=== PATIENT | female | born 2000 | race African-American/Black ===

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

== ENCOUNTER 2019-09-13 00:02 | Inpatient (IN) | payer MEDICAID ==
[~2019-09-13] VITALS: Ht 162.6 cm; Wt 86.6 kg
[2019-09-13] MEDS ORDERED: POLYETHYLENE GLYCOL 17 GM PACKET PO PRN (00:30)
[2019-09-13] MEDS ORDERED: BISACODYL 10 MG SUPP PR PRN (00:30)
[2019-09-13] MEDS ORDERED: ONDANSETRON ODT 4 MG PO PRN (00:30)
[2019-09-13 02:12] VITALS: BP 127/80
[2019-09-13 02:35] VITALS: BP 127/80
[2019-09-13] MEDS ORDERED: RISP3TAB3 PO (05:52)
[2019-09-13] MEDS ORDERED: TOPI50TA8 PO (05:53)
[2019-09-13 07:00] VITALS: BP 95/62
[2019-09-13 07:35] LABS: ANION GAP 10 mmol/L (5-15); CHLORIDE 109 mmol/L (98-107); CHOLESTEROL, TOTAL 133 mg/dL (140-239); CREATININE 1.06 mg/dL (0.55-1.02)
[2019-09-13 07:39] LABS: BASOPHILS # (AUTO) 0.03 x10^3/uL (0-0.3); BASOPHILS % (AUTO) 0 % (0-1); EOSINOPHILS % (AUTO) 1 % (1-7); LYMPHOCYTES # (AUTO) 2.39 x10^3/uL (1-6.1); LYMPHOCYTES % (AUTO) 33 % (22-44); MD NO; MEAN CORPUSCULAR HGB CONC 33.1 g/dL (32.4-35.8); MEAN CORPUSCULAR VOLUME 84.7 fL (80-100); MONOCYTES # (AUTO) 0.48 x10^3/uL (0-1.4); MONOCYTES % (AUTO) 7 % (2-9); NEUTROPHILS # (AUTO) 4.23 x10^3/uL (1.8-8.0); NEUTROPHILS % (AUTO) 59 % (42-75); PLATELET COUNT 240 x10^3/uL (130-400); RED BLOOD COUNT 4.58 x10^6/uL (3.82-5.3); RED CELL DISTRIBUTION WIDTH 15.4 % (9.6-15.2)
[2019-09-13 08:01] LABS: CHOL/HDL RATIO 4.8; FREE T4 (FREE THYROXINE) 1.11 ng/dL (0.76-1.46); HDL CHOL % 21 % (28-40); HDL CHOLESTEROL (DIRECT) 28 mg/dL (40-60); LDL CHOLESTEROL,CALCULATED 58 mg/dL (54-169); LDL/HDL RATIO 2.1 (0.5-3.0); TRIGLYCERIDES 236 mg/dL (50-200); VLDL CHOLESTEROL 47 mg/dL (0-25)
[2019-09-13] MEDS: FLUOXETINE HCL 20 MG CAPSULE PO SCH (14:36)
[2019-09-13 19:08] VITALS: BP 94/61
[2019-09-13 19:43] LABS: MICROSCOPIC NOT IND
[2019-09-13] MEDS: TOPIRAMATE 25 MG TABLET PO SCH (20:39)
[2019-09-13] MEDS: RISPERIDONE 1 MG TABLET PO SCH (20:39)
[2019-09-14] MEDS: ACETAMINOPHEN 325 MG TABLET PO PRN (00:40)
[2019-09-14 06:34] LABS: CHLORIDE 111 mmol/L (98-107)
[2019-09-14 06:49] LABS: ALANINE AMINOTRANSFERASE 18 U/L (12-78); ALBUMIN 3.6 g/dL (3.4-5.0); ALKALINE PHOSPHATASE 87 U/L (45-117); ANION GAP 8 mmol/L (5-15); BILIRUBIN,TOTAL 0.4 mg/dL (0.2-1.0); CALCIUM 9.2 mg/dL (8.5-10.1); CREATININE 1.19 mg/dL (0.55-1.02); TOTAL PROTEIN 7.6 g/dL (6.4-8.2)
[2019-09-14 07:05] VITALS: BP 106/70
[2019-09-14] MEDS: TOPIRAMATE 25 MG TABLET PO SCH ×2 (09:02→20:51)
[2019-09-14] MEDS: FLUOXETINE HCL 20 MG CAPSULE PO SCH (09:02)
[2019-09-14 19:14] VITALS: BP 110/70
[2019-09-14] MEDS: RISPERIDONE 1 MG TABLET PO SCH (20:51)
[2019-09-15 07:59] VITALS: BP 96/58
[2019-09-15] MEDS: FLUOXETINE HCL 20 MG CAPSULE PO SCH (08:56)
[2019-09-15] MEDS: TOPIRAMATE 25 MG TABLET PO SCH ×2 (08:56→20:07)
[2019-09-15] MEDS: ACETAMINOPHEN 325 MG TABLET PO PRN ×2 (11:42→19:38)
[2019-09-15 14:32] LABS: ANION GAP 11 mmol/L (5-15); CALCIUM 9.6 mg/dL (8.5-10.1); CHLORIDE 109 mmol/L (98-107); CREATININE 1.07 mg/dL (0.55-1.02)
[2019-09-15 19:35] VITALS: BP 100/51
[2019-09-15] MEDS: RISPERIDONE 1 MG TABLET PO SCH (20:08)
[2019-09-15 20:24] VITALS: BP 101/64
[2019-09-16 07:38] VITALS: BP 123/78
[2019-09-16] MEDS: TOPIRAMATE 25 MG TABLET PO SCH ×2 (08:10→20:53)
[2019-09-16] MEDS: DOCUSATE 100 MG CAPSULE PO PRN (08:10)
[2019-09-16] MEDS: FLUOXETINE HCL 20 MG CAPSULE PO SCH (08:10)
[2019-09-16] MEDS: ACETAMINOPHEN 325 MG TABLET PO PRN (08:10)
[2019-09-16] MEDS: IBUPROFEN 200 MG TABLET PO PRN ×2 (12:11→18:03)
[2019-09-16 19:34] VITALS: BP 133/65
[2019-09-16] MEDS: RISPERIDONE 1 MG TABLET PO SCH (20:54)
[2019-09-17 07:42] VITALS: BP 110/80
[2019-09-17] MEDS: TOPIRAMATE 25 MG TABLET PO SCH ×2 (08:21→20:04)
[2019-09-17] MEDS: FLUOXETINE HCL 20 MG CAPSULE PO SCH (08:21)
[2019-09-17] MEDS ORDERED: FLUO20CA23 PO (11:54)
[2019-09-17] MEDS ORDERED: TOPI25TA32 PO (11:54)
[2019-09-17] MEDS ORDERED: RISP3TAB3 PO (11:54)
[2019-09-17] MEDS: ACETAMINOPHEN 325 MG TABLET PO PRN (14:33)
[2019-09-17 19:51] VITALS: BP 132/71
[2019-09-17] MEDS: RISPERIDONE 1 MG TABLET PO SCH (20:04)
[2019-09-17] MEDS: IBUPROFEN 200 MG TABLET PO PRN (20:09)
[2019-09-17] MEDS: DOCUSATE 100 MG CAPSULE PO PRN (20:13)
[2019-09-18 07:00] VITALS: BP 98/61
[2019-09-18] MEDS: TOPIRAMATE 25 MG TABLET PO SCH (09:11)
[2019-09-18] MEDS: FLUOXETINE HCL 20 MG CAPSULE PO SCH (09:12)
== END 2019-09-18 10:10 | disposition home or self-care (01) | DRG 751 ==
LOC: 3E 02:39
PROVIDERS: ADMIT Psychiatry & Neurology Psychosomatic Medicine; ATTEND Psychiatry & Neurology Psychosomatic Medicine
DX: F33.3 Major depressive disorder, recurrent, severe with psychotic symptoms (principal); E66.9 Obesity, unspecified; F41.1 Generalized anxiety disorder; F50.9 Eating disorder, unspecified; F90.9 Attention-deficit hyperactivity disorder, unspecified type; R62.50 Unspecified lack of expected normal physiological development in childhood; R45.851 Suicidal ideations; N17.0 Acute kidney failure with tubular necrosis; Q86.0 Fetal alcohol syndrome (dysmorphic); Z79.899 Other long term (current) drug therapy; Z91.5 Personal history of self-harm; Z68.32 Body mass index [BMI] 32.0-32.9, adult
CPT/HCPCS: 36415; 71045; 80048; 80053; 80061; 81003; 82607; 84439; 84443; 85025; 86592; 93005

== ENCOUNTER 2020-08-27 22:33 | Observation (INO) | payer MEDICAID ==
[~2020-08-27] VITALS: Ht 162.6 cm; Wt 75.0 kg
[~2020-08-27 22:33] MED LIST changes: +FLUO20CA23 PO; +RISP3TAB58 PO; +TOPI25TA32 PO; +TOPI50TA8 PO
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
[2020-08-27 23:24] LABS: AMPHETAMINE SCREEN, URINE Negative (Negative); BARBITURATE SCREEN, URINE Negative (Negative); BENZODIAZEPINE SCREEN, URINE Negative (Negative); CANNABINOID SCREEN, URINE Negative (Negative); COCAINE SCREEN, URINE Negative (Negative); METHADONE SCREEN, URINE Negative (Negative); OPIATE SCREEN, URINE Negative (Negative)
[2020-08-27 23:37] LABS: BASOPHILS % (AUTO) 0 % (0-1); EOSINOPHILS % (AUTO) 0 % (1-7); LYMPHOCYTES % (AUTO) 18 % (22-44); MEAN CORPUSCULAR HEMOGLOBIN 27.5 pg (27.0-34.8); MEAN CORPUSCULAR HGB CONC 32.9 g/dL (32.4-35.8); MEAN PLATELET VOLUME 7.5 fL (7.4-10.4); MONOCYTES % (AUTO) 9 % (2-9); NEUTROPHILS % (AUTO) 73 % (42-75); PLATELET COUNT 281 x10^3/uL (130-400); RED BLOOD COUNT 4.58 x10^6/uL (3.82-5.3); RED CELL DISTRIBUTION WIDTH 16.4 % (9.6-15.2)
[2020-08-27 23:46] LABS: ALANINE AMINOTRANSFERASE 21 U/L (12-78); ALBUMIN 3.8 g/dL (3.4-5.0); ANION GAP 5 mmol/L (5-15); CALCIUM 8.8 mg/dL (8.5-10.1); CHLORIDE 109 mmol/L (98-107)
--- NOTE | 2020-08-27 23:49 | NUR ---
spoke to carmencita dinh over the phone. recomendations were multiple labs, and supportive care. erp updated as well
[2020-08-27 23:56] LABS: SALICYLATE LEVEL < 1.7 mg/dL (2.8-20.0)
[2020-08-27 23:57] LABS: ALKALINE PHOSPHATASE 90 U/L (45-117); BILIRUBIN,TOTAL 0.3 mg/dL (0.2-1.0); CREATININE 0.88 mg/dL (0.55-1.02); TOTAL PROTEIN 7.8 g/dL (6.4-8.2)
[2020-08-28 00:42] LABS: INTERNATIONAL NORMALIZED RATIO 1.1 (0.93-1.1); PROTHROMBIN TIME 11.7 Seconds (9.6-11.5)
--- NOTE | 2020-08-28 01:00 | NUR ---
PT PROVIDED SNACKS AND WATER, OK PE ERP. PT ON ALL MONITORS, VSS. NO OTHER NEEDS AT THIS TIME. IN LINE OF SIGHT OF SITTER
--- NOTE | 2020-08-28 02:02 | NUR ---
Nasal swab collected and walked to lab.
--- NOTE | 2020-08-28 03:08 | NUR ---
PT RESTING IN GURNEY, RESP EVEN/UNLABORED, IN LINE OF SIGHT OF TABATHA
--- NOTE | 2020-08-28 03:55 | NUR ---
FA[facility]ED PACKET TO [facility], [facility]
[2020-08-28 04:11] VITALS: BP 109/60
--- NOTE | 2020-08-28 04:32 | NUR ---
[facility] ACCEPTED PT
[2020-08-28] MEDS ORDERED: OMEP20TA62 PO (14:32)
[2020-08-28] MEDS ORDERED: MULT-482 PO (14:32)
[2020-08-28] MEDS ORDERED: TOPI100T8 PO (14:32)
[2020-08-28] MEDS ORDERED: RISP4TAB66 PO (14:34)
== END 2020-08-28 05:24 ==
LOC: ED 23:03 → EDIP 08-28 01:46
PROVIDERS: ADMIT Student in an Organized Health Care Education/Training Program; ATTEND Student in an Organized Health Care Education/Training Program
DX: T65.892A Toxic effect of other specified substances, intentional self-harm, initial encounter (principal); Z20.822 Contact with and (suspected) exposure to COVID-19; F41.8 Other specified anxiety disorders; I51.7 Cardiomegaly; F91.3 Oppositional defiant disorder; F43.23 Adjustment disorder with mixed anxiety and depressed mood; Z91.5 Personal history of self-harm; Z79.899 Other long term (current) drug therapy
CPT/HCPCS: 36415; 80053; 80299; 80307; 80320; 80329; 84443; 84703; 85025; 85610; 87426; 93005; 99284; G0378; G0480

== ENCOUNTER 2020-08-28 04:26 | Inpatient (IN) | payer MEDICAID ==
[~2020-08-28] VITALS: Ht 162.6 cm; Wt 91.0 kg
[2020-08-28] MEDS ORDERED: ONDANSETRON ODT 4 MG PO PRN (05:00)
[2020-08-28] MEDS ORDERED: POLYETHYLENE GLYCOL 17 GM PACKET PO PRN (05:00)
[2020-08-28] MEDS ORDERED: DOCUSATE 100 MG CAPSULE PO PRN (05:00)
[2020-08-28] MEDS ORDERED: BISACODYL 10 MG SUPP PR PRN (05:00)
[2020-08-28 05:39] VITALS: BP 116/72
[2020-08-28 07:50] VITALS: BP 108/65
[2020-08-28] MEDS: ACETAMINOPHEN 325 MG TABLET PO PRN (10:11)
[2020-08-28] MEDS ORDERED: OMEP20TA62 PO (14:32)
[2020-08-28] MEDS ORDERED: TOPI100T8 PO (14:32)
[2020-08-28] MEDS ORDERED: MULT-482 PO (14:32)
[2020-08-28] MEDS ORDERED: RISP4TAB66 PO (14:34)
[2020-08-28 15:19] LABS: CHOL/HDL RATIO 3.5; LDL/HDL RATIO 1.7 (0.5-3.0)
[2020-08-28 19:35] VITALS: BP 106/63
[2020-08-28] MEDS: RISPERIDONE 1 MG TABLET PO SCH (21:03)
[2020-08-29 07:34] VITALS: BP 109/56
[2020-08-29] MEDS: FLUOXETINE HCL 20 MG CAPSULE PO SCH (08:00)
[2020-08-29] MEDS: RISPERIDONE 1 MG TABLET PO SCH ×2 (08:02→20:15)
[2020-08-29 19:38] VITALS: BP 114/52
[2020-08-30 07:23] VITALS: BP 113/49
[2020-08-30] MEDS: RISPERIDONE 1 MG TABLET PO SCH ×2 (08:21→20:19)
[2020-08-30] MEDS: FLUOXETINE HCL 20 MG CAPSULE PO SCH (09:00)
[2020-08-30 19:09] VITALS: BP 131/82
[2020-08-30] MEDS: GUANFACINE 1 MG TABLET PO SCH (20:19)
[2020-08-30] MEDS: ACETAMINOPHEN 325 MG TABLET PO PRN (20:30)
[2020-08-31 07:25] VITALS: BP 106/72
[2020-08-31] MEDS: FLUOXETINE HCL 20 MG CAPSULE PO SCH (07:55)
[2020-08-31] MEDS: RISPERIDONE 1 MG TABLET PO SCH ×2 (07:55→20:10)
[2020-08-31 18:53] VITALS: BP 114/71
[2020-08-31] MEDS: ACETAMINOPHEN 325 MG TABLET PO PRN (20:09)
[2020-08-31] MEDS: GUANFACINE 1 MG TABLET PO SCH (20:10)
[2020-09-01 07:28] VITALS: BP 97/58
[2020-09-01] MEDS: RISPERIDONE 1 MG TABLET PO SCH ×2 (08:15→20:29)
[2020-09-01] MEDS: FLUOXETINE HCL 20 MG CAPSULE PO SCH (08:16)
[2020-09-01] MEDS: ACETAMINOPHEN 325 MG TABLET PO PRN ×2 (13:28→20:29)
[2020-09-01 19:22] VITALS: BP 123/63
[2020-09-01] MEDS: GUANFACINE 1 MG TABLET PO SCH (20:28)
[2020-09-02 07:18] VITALS: BP 104/69
[2020-09-02] MEDS: FLUOXETINE HCL 20 MG CAPSULE PO SCH (09:31)
[2020-09-02] MEDS: RISPERIDONE 1 MG TABLET PO SCH ×2 (09:32→20:27)
[2020-09-02] MEDS ORDERED: HYDROXYZINE PAMOATE 25MG CAP PO PRN (13:00)
[2020-09-02] MEDS ORDERED: FLUO20CA23 PO (14:17)
[2020-09-02] MEDS ORDERED: GUAN1TAB PO (14:17)
[2020-09-02] MEDS ORDERED: HYDR25CA94 PO (14:17)
[2020-09-02] MEDS ORDERED: RISP1TAB90 PO ×2 (14:17)
[2020-09-02 19:51] VITALS: BP 119/76
[2020-09-02] MEDS: GUANFACINE 1 MG TABLET PO SCH (20:36)
[2020-09-03 06:40] LABS: MICROSCOPIC NOT IND
[2020-09-03 07:14] VITALS: BP 113/72
[2020-09-03] MEDS: FLUOXETINE HCL 20 MG CAPSULE PO SCH (08:02)
[2020-09-03] MEDS: RISPERIDONE 1 MG TABLET PO SCH (08:02)
== END 2020-09-03 16:16 | disposition home or self-care (01) | DRG 885 ==
LOC: 3E 05:01
PROVIDERS: ADMIT Psychiatry & Neurology Psychosomatic Medicine; ATTEND Psychiatry & Neurology Psychosomatic Medicine
DX: F33.3 Major depressive disorder, recurrent, severe with psychotic symptoms (principal); E66.9 Obesity, unspecified; F41.9 Anxiety disorder, unspecified; F90.9 Attention-deficit hyperactivity disorder, unspecified type; K21.9 Gastro-esophageal reflux disease without esophagitis; Z79.899 Other long term (current) drug therapy; Z68.34 Body mass index [BMI] 34.0-34.9, adult
CPT/HCPCS: 36415; 71045; 80053; 80061; 80299; 80307; 80320; 80329; 81003; 84443; 84703; 85025; 85610; 87426; 93005; G0378; G0480

== ENCOUNTER 2020-10-17 22:39 | Emergency (ER) | payer MEDICAID ==
[~2020-10-17] VITALS: Ht 162.6 cm; Wt 105.0 kg
[~2020-10-17 22:39] MED LIST changes: +GUAN1TAB PO; +HYDR25CA94 PO; +MULT-482 PO; +OMEP20TA62 PO; +RISP1TAB90 PO; +RISP4TAB66 PO; +TOPI100T8 PO
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
--- NOTE | 2020-10-17 23:18 | NUR ---
REPORT GIVEN TO CECILIO CENTENO
[2020-10-17] MEDS ORDERED: HALOPERIDOL 5 MG/ML ONE (23:27)
--- NOTE | 2020-10-17 23:28 | NUR ---
PT KICKING BED RAILS AND SHOUTING AT SITTER.
[2020-10-17] MEDS ORDERED: HALOPERIDOL 5 MG/ML IM ONE (23:30)
--- NOTE | 2020-10-17 23:32 | NUR ---
PT MEDICATED PER APR, 5 RIGHTS VERIFIED.
--- NOTE | 2020-10-18 00:04 | NUR ---
LAB AT BEDSIDE AT THIS TIME
[2020-10-18] MEDS ORDERED: LORazepam 2 MG/ML, 1ML ONE (00:16)
--- NOTE | 2020-10-18 00:20 | NUR ---
PT MEDICATED PER MAR
[2020-10-18] MEDS ORDERED: LORazepam 2 MG/ML, 1ML IVPush ONE (00:30)
[2020-10-18 00:35] LABS: BASOPHILS % (AUTO) 0 % (0-1); EOSINOPHILS % (AUTO) 1 % (1-7); LYMPHOCYTES % (AUTO) 23 % (22-44); MEAN CORPUSCULAR HEMOGLOBIN 27.1 pg (27.0-34.8); MEAN CORPUSCULAR HGB CONC 32.6 g/dL (32.4-35.8); MEAN PLATELET VOLUME 7.6 fL (7.4-10.4); MONOCYTES % (AUTO) 7 % (2-9); NEUTROPHILS % (AUTO) 69 % (42-75); PLATELET COUNT 264 x10^3/uL (130-400); RED BLOOD COUNT 4.56 x10^6/uL (3.82-5.3); RED CELL DISTRIBUTION WIDTH 16.8 % (9.6-15.2)
[2020-10-18 00:45] LABS: ALBUMIN 3.5 g/dL (3.4-5.0); ANION GAP 5 mmol/L (5-15); CALCIUM 8.7 mg/dL (8.5-10.1); CHLORIDE 109 mmol/L (98-107)
[2020-10-18 00:48] LABS: ALANINE AMINOTRANSFERASE 21 U/L (12-78); ALKALINE PHOSPHATASE 77 U/L (45-117); BILIRUBIN,TOTAL 0.2 mg/dL (0.2-1.0); CREATININE 0.95 mg/dL (0.55-1.02); TOTAL PROTEIN 7.9 g/dL (6.4-8.2)
[2020-10-18 00:54] LABS: SALICYLATE LEVEL < 1.7 mg/dL (2.8-20.0)
--- NOTE | 2020-10-18 01:00 | NUR ---
PT NOW ONLY IN 2PT RESTRAINTS. APPEARS TO BE MORE CALM AT THIS TIME, SITTER REMAINS IN SIGHT
--- NOTE | 2020-10-18 01:49 | NUR ---
PT RESTING ON GURNEY RESP EVEN AND UNLABORED BENOIT SITTER IN SIGHT
--- NOTE | 2020-10-18 02:00 | NUR ---
packet faxed to [facility] for first dibs.
--- NOTE | 2020-10-18 02:22 | NUR ---
TP RN: U UNABLE TO ACCEPT PT.; NO CHARGE NURSE.
--- NOTE | 2020-10-18 02:45 | NUR ---
PT RESTING ON GURNEY RESP EVEN AND UNLABORED BENOIT SITTER IN SIGHT
--- NOTE | 2020-10-18 03:45 | NUR ---
PT RESTING ON GURNEY RESP EVEN AND UNLABORED BENOIT SITTER IN SIGHT
--- NOTE | 2020-10-18 04:24 | NUR ---
packet faxed to [facility] [place].
--- NOTE | 2020-10-18 04:46 | NUR ---
PT RESTING ON GURNEY RESP EVEN AND UNLABORED BENOIT SITTER IN SIGHT
--- NOTE | 2020-10-18 05:44 | NUR ---
PT RESTING ON GURNEY RESP EVEN AND UNLABORED BENOIT SITTER IN SIGHT
--- NOTE | 2020-10-18 06:40 | NUR ---
PT RESTING ON GURNEY RESP EVEN AND UNLABORED BENOIT SITTER IN SIGHT
--- NOTE | 2020-10-18 06:47 | NUR ---
REPORT FROM TARYN GA AT THIS TIME. [facility], SITTER IN DIRECT LINE OF SIGHT.
--- NOTE | 2020-10-18 08:30 | NUR ---
MEAL TRAY PROVIDED AT THIS TIME. PT SCREAMED "NOOOOOOO" WHEN ASKED IF SHE COULD PROVIDE A URINE SAMPLE.
[2020-10-18] MEDS ORDERED: LORazepam 1MG TABLET ONE (09:20)
[2020-10-18] MEDS ORDERED: LORazepam 1MG TABLET PO ONE (09:30)
[2020-10-18] MEDS ORDERED: HALOPERIDOL 5 MG/ML IM ONE (09:38)
[2020-10-18] MEDS ORDERED: HALOPERIDOL 5 MG/ML ONE (09:39)
--- NOTE | 2020-10-18 09:44 | NUR ---
PT BANGING HEAD AGAINST RAIL OF BED. THIS RN AND SITTER TRIED TO VERBALLY DE-ESCALATE PT. PT CONTINUED TO TRY AND HIT HERSELF. PT MEDICATED WITH PO ATIVAN AND REDIRECTED. PT CONTINUED TO TRY AND HURT HERSELF WHILE SCREAMING. PT MEDICATED WITH IM HALDOL. PT NOW RESTING IN [facility] WITH EYES CLOSED.
[2020-10-18 09:58] VITALS: BP 109/78
--- NOTE | 2020-10-18 10:58 | NUR ---
COVID SWAB COLLECTED AND WALKED DOWN TO LAB.
== END 2020-10-18 21:30 ==
LOC: ED 23:33
DX: R45.851 Suicidal ideations (principal); F39 Unspecified mood [affective] disorder; F41.1 Generalized anxiety disorder; Z20.822 Contact with and (suspected) exposure to COVID-19
CPT/HCPCS: 36415; 80053; 80299; 80320; 85025; 87426; 96372; 96374; 99285; J1630; J2060; 80329; G0480

== ENCOUNTER 2020-10-18 11:06 | Inpatient (IN) | payer MEDICAID ==
[~2020-10-18] VITALS: Ht 162.6 cm; Wt 91.5 kg
[2020-10-18] MEDS ORDERED: ONDANSETRON ODT 4 MG PO PRN (11:30)
[2020-10-18] MEDS ORDERED: DOCUSATE 100 MG CAPSULE PO PRN (11:30)
[2020-10-18] MEDS ORDERED: BISACODYL 10 MG SUPP PR PRN (11:30)
[2020-10-18] MEDS ORDERED: LORazepam 2 MG/ML, 1ML IM PRN (11:30)
[2020-10-18] MEDS ORDERED: POLYETHYLENE GLYCOL 17 GM PACKET PO PRN (11:30)
[2020-10-18] MEDS ORDERED: HALOPERIDOL 5 MG/ML IM PRN (11:30)
[2020-10-18] MEDS ORDERED: HALOPERIDOL 5 MG TABLET PO PRN (11:30)
[2020-10-18] MEDS ORDERED: DIPHENHYDRAMINE 50 MG/ML, 1ML IM PRN (11:30)
[2020-10-18 13:06] VITALS: BP 107/73
[2020-10-18] MEDS ORDERED: FLUCONAZOLE 50 MG TABLET PO ONE (13:30)
[2020-10-18] MEDS: LORazepam 1MG TABLET PO PRN (14:36)
[2020-10-18 17:49] LABS: MICROSCOPIC INDICATED
[2020-10-18 17:54] LABS: AMPHETAMINE SCREEN, URINE Negative (Negative); BARBITURATE SCREEN, URINE Negative (Negative); BENZODIAZEPINE SCREEN, URINE Positive (Negative); CANNABINOID SCREEN, URINE Negative (Negative); COCAINE SCREEN, URINE Negative (Negative); METHADONE SCREEN, URINE Negative (Negative); OPIATE SCREEN, URINE Negative (Negative)
[2020-10-18 19:18] VITALS: BP 108/67
[2020-10-18] MEDS: DIPHENHYDRAMINE 50 MG CAPSULE PO PRN (20:03)
[2020-10-18] MEDS: OMEPRAZOLE 20 MG CAPSULE.DR PO SCH (20:04)
[2020-10-18] MEDS: RISPERIDONE 2 MG TABLET PO SCH (20:04)
[2020-10-18] MEDS: TOPIRAMATE 100 MG TABLET PO SCH (20:04)
[2020-10-19 07:16] VITALS: BP 95/61
[2020-10-19] MEDS: TOPIRAMATE 100 MG TABLET PO SCH ×2 (08:24→20:12)
[2020-10-19] MEDS: FLUOXETINE HCL 20 MG CAPSULE PO SCH (08:25)
[2020-10-19] MEDS: RISPERIDONE 2 MG TABLET PO SCH ×2 (08:25→20:13)
[2020-10-19] MEDS: MULTIVITAMIN 1 TABLET PO SCH (08:25)
[2020-10-19] MEDS: ACETAMINOPHEN 325 MG TABLET PO PRN (14:07)
[2020-10-19] MEDS: CALCIUM CARBONATE 500 MG TAB.CHEW PO PRN (14:46)
[2020-10-19] MEDS: LORazepam 1MG TABLET PO PRN (16:08)
[2020-10-19 19:32] VITALS: BP 105/68
[2020-10-19] MEDS: OMEPRAZOLE 20 MG CAPSULE.DR PO SCH (20:13)
[2020-10-20 07:37] VITALS: BP 98/60
[2020-10-20] MEDS: FLUOXETINE HCL 20 MG CAPSULE PO SCH (08:58)
[2020-10-20] MEDS: RISPERIDONE 2 MG TABLET PO SCH ×2 (08:58→20:26)
[2020-10-20] MEDS: MULTIVITAMIN 1 TABLET PO SCH (08:58)
[2020-10-20] MEDS: TOPIRAMATE 100 MG TABLET PO SCH ×2 (08:58→20:26)
[2020-10-20] MEDS: IBUPROFEN 200 MG TABLET PO PRN (09:29)
[2020-10-20] MEDS: CALCIUM CARBONATE 500 MG TAB.CHEW PO PRN (18:02)
[2020-10-20 19:13] VITALS: BP 105/52
[2020-10-20] MEDS: ACETAMINOPHEN 325 MG TABLET PO PRN (20:25)
[2020-10-20] MEDS: OMEPRAZOLE 20 MG CAPSULE.DR PO SCH (20:26)
[2020-10-20] MEDS: DIPHENHYDRAMINE 50 MG CAPSULE PO PRN (21:19)
[2020-10-21 07:54] VITALS: BP 117/68
[2020-10-21] MEDS: MULTIVITAMIN 1 TABLET PO SCH (08:56)
[2020-10-21] MEDS: RISPERIDONE 2 MG TABLET PO SCH ×2 (08:56→20:16)
[2020-10-21] MEDS: TOPIRAMATE 100 MG TABLET PO SCH ×2 (08:56→20:16)
[2020-10-21] MEDS: FLUOXETINE HCL 20 MG CAPSULE PO SCH (08:59)
[2020-10-21] MEDS: CALCIUM CARBONATE 500 MG TAB.CHEW PO PRN (09:19)
[2020-10-21] MEDS: ACETAMINOPHEN 325 MG TABLET PO PRN (17:59)
[2020-10-21 19:38] VITALS: BP 107/70
[2020-10-21] MEDS: OMEPRAZOLE 20 MG CAPSULE.DR PO SCH (20:16)
[2020-10-21] MEDS: IBUPROFEN 200 MG TABLET PO PRN (20:16)
[2020-10-22 07:50] VITALS: BP 115/76
[2020-10-22] MEDS: MULTIVITAMIN 1 TABLET PO SCH (08:39)
[2020-10-22] MEDS: TOPIRAMATE 100 MG TABLET PO SCH ×2 (08:40→19:57)
[2020-10-22] MEDS: RISPERIDONE 2 MG TABLET PO SCH ×2 (08:40→19:57)
[2020-10-22] MEDS: FLUOXETINE HCL 20 MG CAPSULE PO SCH (08:40)
[2020-10-22] MEDS: IBUPROFEN 200 MG TABLET PO PRN (16:03)
[2020-10-22] MEDS: CALCIUM CARBONATE 500 MG TAB.CHEW PO PRN (16:05)
[2020-10-22 19:10] VITALS: BP 116/82
[2020-10-22] MEDS: OMEPRAZOLE 20 MG CAPSULE.DR PO SCH (19:57)
[2020-10-23 07:15] VITALS: BP 96/62
[2020-10-23] MEDS: RISPERIDONE 2 MG TABLET PO SCH ×2 (09:08→20:11)
[2020-10-23] MEDS: TOPIRAMATE 100 MG TABLET PO SCH ×2 (09:08→20:11)
[2020-10-23] MEDS: CALCIUM CARBONATE 500 MG TAB.CHEW PO PRN (09:08)
[2020-10-23] MEDS: MULTIVITAMIN 1 TABLET PO SCH (09:08)
[2020-10-23] MEDS: FLUOXETINE HCL 20 MG CAPSULE PO SCH (09:12)
[2020-10-23] MEDS: LORazepam 1MG TABLET PO PRN ×2 (10:05→19:40)
[2020-10-23 19:12] VITALS: BP 95/63
[2020-10-23] MEDS: OMEPRAZOLE 20 MG CAPSULE.DR PO SCH (20:10)
[2020-10-23] MEDS: ACETAMINOPHEN 325 MG TABLET PO PRN (20:11)
[2020-10-24 07:26] VITALS: BP 104/65
[2020-10-24] MEDS: TOPIRAMATE 100 MG TABLET PO SCH (08:39)
[2020-10-24] MEDS: FLUOXETINE HCL 20 MG CAPSULE PO SCH (08:39)
[2020-10-24] MEDS: RISPERIDONE 2 MG TABLET PO SCH (08:40)
[2020-10-24] MEDS: MULTIVITAMIN 1 TABLET PO SCH (08:40)
[2020-10-24] MEDS: CALCIUM CARBONATE 500 MG TAB.CHEW PO PRN (08:40)
[2020-10-24] MEDS ORDERED: TOPI100T24 PO (11:00)
[2020-10-24] MEDS ORDERED: HYDR25CA94 PO (11:00)
[2020-10-24] MEDS ORDERED: RISP2TAB80 PO (11:00)
[2020-10-24] MEDS ORDERED: FLUO20CA23 PO (11:08)
== END 2020-10-24 14:10 | disposition home or self-care (01) | DRG 885 ==
LOC: UNDOADMIN 11:18 → 3E 11:18
PROVIDERS: ADMIT Psychiatry & Neurology Psychosomatic Medicine; ATTEND Psychiatry & Neurology Psychosomatic Medicine
DX: F31.5 Bipolar disorder, current episode depressed, severe, with psychotic features (principal); R45.851 Suicidal ideations; E66.9 Obesity, unspecified; F41.9 Anxiety disorder, unspecified; K21.9 Gastro-esophageal reflux disease without esophagitis; N76.0 Acute vaginitis; R51.9 Headache, unspecified; R62.50 Unspecified lack of expected normal physiological development in childhood; Z79.899 Other long term (current) drug therapy; Z68.34 Body mass index [BMI] 34.0-34.9, adult; Q86.0 Fetal alcohol syndrome (dysmorphic)
CPT/HCPCS: 36415; 71045; 80053; 80299; 80307; 80320; 80329; 81001; 84703; 85025; 87086; 87426; 93005; 96372; 96374; 99285; Q0162; G0480; J1630; J2060